=== PATIENT | female | born 1965 | race Two or more races ===

== ENCOUNTER 2021-08-15 09:05 | Emergency (ER) | payer SELFPAY ==
[~2021-08-15] VITALS: Ht 157.5 cm; Wt 73.6 kg
[2021-08-15 09:59] LABS: BASO % 1 % (0-3); EOS # 0.1 x10^3/uL (0.0-0.7); EOS % 2 % (0-3); HEMATOCRIT 39.7 % (36.0-47.0); LYMPH # 3.1 x10^3/uL (1.0-4.8); LYMPH % 51 % (24-48); MEAN CORPUSCULAR HEMOGLOBIN 29 pg (25-35); MEAN CORPUSCULAR HGB CONC 33 g/dL (31-37); MEAN CORPUSCULAR VOLUME 90 fL (79-100); MONO # 0.3 x10^3/uL (0.0-1.1); MONO % 6 % (0-9); NEUT # 2.4 x10^3/uL (1.8-7.7); NEUT % 40 % (31-73); PLATELET COUNT 326 x10^3/uL (140-400); RED BLOOD COUNT 4.43 x10^6/uL (3.50-5.40); RED CELL DISTRIBUTION WIDTH 13.8 % (11.5-14.5)
[2021-08-15 10:07] LABS: BACTERIA,URINE 0 /HPF (0-FEW); RBC,URINE 0 /HPF (0-2); WBC,URINE 0 /HPF (0-4)
[2021-08-15 10:19] LABS: CALCIUM 9.6 mg/dL (8.5-10.1); CREATININE 0.6 mg/dL (0.6-1.0); GFR 102.7; POTASSIUM 4.4 mmol/L (3.5-5.1)
[2021-08-15 10:24] LABS: ALBUMIN/GLOBULIN RATIO 1.1 (1.0-1.7); TOTAL BILIRUBIN 0.4 mg/dL (0.2-1.0); TOTAL PROTEIN 7.7 g/dL (6.4-8.2)
[2021-08-15] MEDS ORDERED: CONTRAST GIVEN. MC PRN (10:30)
[2021-08-15] MEDS: IOHEXOL 300 MG/ML 100ML VIAL. IV ONE (10:32)
[2021-08-15] MEDS: IV NORMAL SALINE 1000ML BAG 1,000 ML IV ONE (11:04)
--- NOTE | 2021-08-15 11:09 | RAD ---
INDICATION: Reason: LLQ abdominal pain / Spl. Instructions: omni 300 75ml / History: COMPARISON: None. TECHNIQUE: Axial CT images were obtained through the abdomen and pelvis with intravenous contrast. One or more of the following individualized dose reduction techniques were utilized for this examinat ion: 1. Automated exposure control; 2. Adjustment of the mA and/or kV according to patient size; 3 . Use of iterative reconstruction technique. FINDINGS: Vascular: Atherosclerotic disease throughout the vasculature. Hepatobiliary: Liver is low density which can be seen with fatty infiltration. Prominent in size. Pancreas: No peripancreatic edema. Spleen: Spleen unremarkable. Renal/Bladder: No hydronephrosis. Urinary bladder somewhat distended at time of exam. Gastrointestinal: Appendix is near the upper limits of normal in size at approximately 6 mm without a djacent inflammatory changes. This therefore does not fulfill all of the CT criteria for appendicitis . No dilated loops of bowel to suggest obstruction. Degenerative changes the spine. Multilevel central canal and neural foraminal stenosis. IMPRESSION: * No evidence of bowel obstruction or appendicitis. * No hydronephrosis. Electronically signed by: Cameron Culp MD (08/15/2021 11:07 AM) [id number]
--- NOTE | 2021-08-15 11:14 | PHYS DOC ---
Past Medical History Past Medical History: No Pertinent History Past Surgical History: No Surgical History Smoking Status: Never Smoker Alcohol Use: None General Adult EDM: Chief Complaint: FLANK PAIN HPI: HPI: Patient is a 56-year-old female that presents today with left lower quadrant and left back pain. Patient states the pain started approximately 2-1/2 3 weeks ago, and is progressively been there and has not changed in any way, she does not have nausea, vomiting, diarrhea, dysuria, frequency in urination, or vaginal bleeding or vaginal discharge with this pain. Patient denies trauma, she says none nothing makes it better or worse. Review of Systems: Review of Systems: Constitutional: Denies fever or chills. [] Eyes: Denies change in visual acuity. [] HENT: Denies nasal congestion or sore throat. [] Respiratory: Denies cough or shortness of breath. [] Cardiovascular: Denies chest pain or edema. [] GI: Left lower quadrant abdominal/back pain denies nausea, vomiting, bloody stools or diarrhea. [] : Denies dysuria. [] Musculoskeletal: Denies back pain or joint pain. [] Integument: Denies rash. [] Neurologic: Denies headache, focal weakness or sensory changes. [] Endocrine: Denies polyuria or polydipsia. [] Lymphatic: Denies swollen glands. [] Psychiatric: Denies depression or anxiety. [] Heart Score: C/O Chest Pain: No Risk Factors: Risk Factors: DM, Current or recent (<one month) smoker, HTN, HLP, family history of CAD, obesity. Risk Scores: Score 0 - 3: 2.5% MACE over next 6 weeks - Discharge Home Score 4 - 6: 20.3% MACE over next 6 weeks - Admit for Clinical Observation Score 7 - 10: 72.7% MACE over next 6 weeks - Early Invasive Strategies Current Medications: Current Medications Medications (Trade) Dose Ordered Sig/Astrid Start Time Stop Time Status Last Admin Dose Admin Info (CONTRAST GIVEN -- Rx MONITORING) 1 each PRN DAILY PRN 08/15/21 10:30 08/17/21 10:29 Iohexol (Omnipaque 300 Mg/ml) 75 ml 1X ONCE 08/15/21 10:30 08/15/21 10:31 DC 08/15/21 10:32 75 ML Sodium Chloride 1,000 ml @ 999 mls/hr 1X ONCE 08/15/21 10:00 08/15/21 11:00 DC 08/15/21 11:04 999 MLS/HR Allergies: Allergies: Allergies Coded Allergies Type Severity Reaction Last Updated Verified No Known Drug Allergies 08/15/21 No Physical Exam: PE: Constitutional: Well developed, well nourished, no acute distress, non-toxic appearance. [] HENT: Normocephalic, atraumatic, bilateral external ears normal, oropharynx moist, no oral exudates, nose normal. [] Eyes: PERRLA, EOMI, conjunctiva normal, no discharge. [] Neck: Normal range of motion, no tenderness, supple, no stridor. [] Cardiovascular:Heart rate regular rhythm, no murmur [] Lungs & Thorax: Bilateral breath sounds clear to auscultation [] Abdomen: Bowel sounds normal, soft, tenderness located over the left lower quadrant, no lacerations, abrasions, contusions, or ecchymosis noted no pulsatile masses noted Skin: Warm, dry, no erythema, no rash. [] Back: No tenderness, no CVA tenderness. [] Extremities: No tenderness, no cyanosis, no clubbing, ROM intact, no edema. [] Neurologic: Alert and oriented X 3, normal motor function, normal sensory function, no focal deficits noted. [] Psychologic: Affect normal, judgement normal, mood normal. [] Current Patient Data: Labs: Laboratory Tests Test 08/15/21 09:12 08/15/21 09:49 Urine Collection Type Unknown Urine Color (Auto) Colorless Urine Turbidity Clear Urine pH (Auto) 6.5 (<5.0-8.0) Urine Specific [place] 1.004 (1.000-1.030) Urine Protein (Auto) Negative mg/dL (Negative) Urine Glucose (Auto)(UA) Negative mg/dL (Negative) Urine Ketones (Auto) Negative mg/dL (Negative) Urine Blood (Auto) Negative (Negative) Urine Nitrite Negative (Negative) Urine Bilirubin (Auto) Negative (Negative) Urine Urobilinogen (Auto) Normal mg/dL (Normal) Urine Leukocyte Esterase (Auto) Negative (Negative) Urine RBC 0 /HPF (0-2) Urine WBC 0 /HPF (0-4) Urine Squamous Epithelial Cells Occ /LPF Urine Bacteria 0 /HPF (0-FEW) White Blood Count 6.0 x10^3/uL (4.0-11.0) Red Blood Count 4.43 x10^6/uL (3.50-5.40) Hemoglobin 13.0 g/dL (12.0-15.5) Hematocrit 39.7 % (36.0-47.0) Mean Corpuscular Volume 90 fL (79-100) Mean Corpuscular Hemoglobin 29 pg (25-35) Mean Corpuscular Hemoglobin Concent 33 g/dL (31-37) Red Cell Distribution Width 13.8 % (11.5-14.5) Platelet Count 326 x10^3/uL (140-400) Neutrophils (%) (Auto) 40 % (31-73) Lymphocytes (%) (Auto) 51 % (24-48) H Monocytes (%) (Auto) 6 % (0-9) Eosinophils (%) (Auto) 2 % (0-3) Basophils (%) (Auto) 1 % (0-3) Neutrophils # (Auto) 2.4 x10^3/uL (1.8-7.7) Lymphocytes # (Auto) 3.1 x10^3/uL (1.0-4.8) Monocytes # (Auto) 0.3 x10^3/uL (0.0-1.1) Eosinophils # (Auto) 0.1 x10^3/uL (0.0-0.7) Basophils # (Auto) 0.0 x10^3/uL (0.0-0.2) Sodium Level 143 mmol/L (136-145) Potassium Level 4.4 mmol/L (3.5-5.1) Chloride Level 106 mmol/L (98-107) Carbon Dioxide Level 26 mmol/L (21-32) Anion Gap 11 (6-14) Blood Urea Nitrogen 12 mg/dL (7-20) Creatinine 0.6 mg/dL (0.6-1.0) Estimated GFR (Cockcroft-Gault) 102.7 BUN/Creatinine Ratio 20 (6-20) Glucose Level 99 mg/dL (70-99) Calcium Level 9.6 mg/dL (8.5-10.1) Total Bilirubin 0.4 mg/dL (0.2-1.0) Aspartate Amino Transferase (AST) 13 U/L (15-37) L Alanine Aminotransferase (ALT) 26 U/L (14-59) Alkaline Phosphatase 77 U/L (46-116) Total Protein 7.7 g/dL (6.4-8.2) Albumin 4.0 g/dL (3.4-5.0) Albumin/Globulin Ratio 1.1 (1.0-1.7) Lipase 103 U/L (73-393) Laboratory Tests 08/15/21 09:49 Laboratory Tests 08/15/21 09:49 Vital Signs: Vital Signs Date Time Temp Pulse Resp B/P (MAP) Pulse Ox O2 Delivery O2 Flow Rate FiO2 08/15/21 12:07 63 18 133/63 (86) 98 Room Air 08/15/21 11:37 78 18 142/63 (89) 98 Room Air 08/15/21 11:09 63 18 133/63 (86) 98 Room Air 08/15/21 10:16 69 18 135/81 (99) 99 Room Air 08/15/21 09:46 65 18 133/68 (89) 99 Room Air 08/15/21 09:15 98.2 69 16 142/74 (96) 99 Room Air 98.2 Vital Signs Date Time Temp Pulse Resp B/P (MAP) Pulse Ox O2 Delivery O2 Flow Rate FiO2 08/15/21 11:09 63 18 133/63 (86) 98 Room Air 08/15/21 09:15 98.2 98.2 EKG: EKG: [] Radiology/Procedures: Radiology/Procedures: REASON: LLQ abdominal pain PROCEDURE: CT ABD PELV W/ IV CONTRST ONLY INDICATION: Reason: LLQ abdominal pain / Spl. Instructions: omni 300 75ml / History: COMPARISON: None. TECHNIQUE: Axial CT images were obtained through the abdomen and pelvis with intravenous contrast. One or more of the following individualized dose reduction techniques were utilized for this examination: 1. Automated exposure control; 2. Adjustment of the mA and/or kV according to patient size; 3. Use of iterative reconstruction technique. FINDINGS: Vascular: Atherosclerotic disease throughout the vasculature. Hepatobiliary: Liver is low density which can be seen with fatty infiltration. Prominent in size. Pancreas: No peripancreatic edema. Spleen: Spleen unremarkable. Renal/Bladder: No hydronephrosis. Urinary bladder somewhat distended at time of exam. Gastrointestinal: Appendix is near the upper limits of normal in size at approximately 6 mm without adjacent inflammatory changes. This therefore does not fulfill all of the CT criteria for appendicitis. No dilated loops of bowel to suggest obstruction. Degenerative changes the spine. Multilevel central canal and neural foraminal stenosis. IMPRESSION: * No evidence of bowel obstruction or appendicitis. * No hydronephrosis. Electronically signed by: Cameron Culp MD (08/15/2021 11:07 AM) [id number][] REASON: LLQ pelvic pain PROCEDURE: PELVIS W/TV INDICATION: Reason: LLQ pelvic pain / Spl. Instructions: / History: COMPARISON: CT from same day. TECHNIQUE: Grayscale and color ultrasound images uterus and adnexa. Transabd ominal and transvaginal images obtained. Transvaginal images were needed to better visualize structures that were limited on transabdominal imaging. FINDINGS: Uterus: 53 x 40 x 33 mm. 4 mm endometrial stripe Right Ovary: 25 x 13 x 12 mm. Left Ovary: 19 x 16 x 14 mm. Vascular flow identified to bilateral ovaries. Nabothian cyst formation. IMPRESSION: * Vascular flow seen to the ovaries. Electronically signed by: Cameron Culp MD (08/15/2021 12:17 PM) [id number] Course & Med Decision Making: Course & Med Decision Making Pertinent Labs and Imaging studies reviewed. (See chart for details) [[id number] reviewed radiological and laboratory results with patient, did inform her that I found no acute findings today to explain the reason she is having lower abdominal pain back pain. She needs to follow-up with her primary care or one of the listed clinics on her discharge instructions for further evaluation of this, she may need an MRI or other further exam by a specialist for further management. Patient will be given it a prescription for ibuprofen 600 mg to take 1 tablet 4 times daily with food as needed for pain, and to return to the emergency department if she has development of a fever, pain that moves to the right lower quadrant, or inability to keep any by mouth fluids down. All the discharge instructions were given to the patient using interpretive services for Swedish. Hunter Disclaimer: Hnuter Disclaimer: This electronic medical record was generated, in whole or in part, using a voice recognition dictation system. Departure Departure Impression: Primary Impression: Flank pain Disposition: HOME / SELF CARE / HOMELESS Condition: STABLE Referrals: NO PCP (PCP) Patient Instructions: Flank Pain Additional Instructions: Motrin 600 mg take 1 tablet every 6 hours as needed for pain, use with caution may cause stomach upset take with food Follow-up with your primary care physician or with the listed clinics below for further evaluation and management of this left sided abdominal pain flank pain Return to the emergency department for increased pain or the location changes to the right lower quadrant, development of a fever, or the inability to keep any by mouth fluids or food down. [facility] [address] [place] [address] [facility] [address] [place] [address] [facility] [address] [facility] 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
[2021-08-15 12:07] VITALS: BP 133/63
--- NOTE | 2021-08-15 12:19 | RAD ---
INDICATION: Reason: LLQ pelvic pain / Spl. Instructions: / History: COMPARISON: CT from same day. TECHNIQUE: Grayscale and color ultrasound images uterus and adnexa. Transabdominal and transvaginal images obtained. Transvaginal images were needed to better visualize structures that were limited on transabdominal imaging. FINDINGS: Uterus: 53 x 40 x 33 mm. 4 mm endometrial stripe Right Ovary: 25 x 13 x 12 mm. Left Ovary: 19 x 16 x 14 mm. Vascular flow identified to bilateral ovaries. Nabothian cyst formation. IMPRESSION: * Vascular flow seen to the ovaries. Electronically signed by: Cameron Culp MD (08/15/2021 12:17 PM) [id number]
[2021-08-15] MEDS ORDERED: IBUP-1007 PO (13:04)
== END 2021-08-15 13:18 | disposition home or self-care (01) ==
LOC: ER 09:05
DX: R10.32 Left lower quadrant pain (principal); M54.9 Dorsalgia, unspecified
CPT/HCPCS: 36415; 74177; 76830; 76856; 80053; 81001; 83690; 85025; 96360; 99285; J7030; Q9967